=== PATIENT | female | born 1955 | race Caucasian/White ===

== ENCOUNTER 2025-07-28 00:32 | Day surgery (SDC) | payer MEDICARE, SELFPAY ==
--- NOTE | 2025-07-13 15:28 | PC.NURSE ---
Report to the Outpatient Waiting Room, entrance under the green pavilion located off [facility], at time __0915am on date __07/28/25 . Planned Procedure Time: 11:15am .? Time changes happen often and if your time is changed the preop area will call you the afternoon before. - You and your visitor will be asked to self-screen and do not enter if you have any COVID symptoms. Please call surgeon if you need to reschedule. - A mask is optional within the hospital at this time. Patients may have clear liquids (water, carbonated beverages, clear teas, apple juice) until 3 hours prior to surgery with a maximum of 20 ounces. - No food from midnight until time of surgery and no smoking, or chewing tobacco (or any form of nicotine). No chewing gum, candy or mints. (0815am) Take only the following medications with a SIP of water on the morning of surgery: ___NONE DO NOT STOP ANY OF YOUR OTHER PRESCRIPTION MEDICATIONS PRIOR TO SURGERY EXCEPT THE FOLLOWING Hold all vitamins and supplements for 3 days per anesthesiologist. Medications to discontinue per physician Advil/Aleve/Aspirin/Motrin for [address] Gill Date to take last dose___07/20/25__ Please no make-up, nail azerbaijani, hairspray, perfume, deodorant, or body powder the day of surgery.? No jewelry (including any body piercings) or valuables the day of surgery, leave them at home.? Please take a shower or bath the night before, or the morning of, surgery with an antibacterial soap.? Wear comfortable, loose fitting clothing.? - Jewelry must be removed prior to entering the operating room.? Rings and piercings that are not removed may be cut off. - The hospital will not accept responsibility for valuables.? - Please leave all valuables, including medications, at home the day of surgery. If you are going home after surgery, a licensed class b truck driver must drive you home.? - NO public transportation without another adult if you receive anesthesia. - We recommend that an adult stay with you for 24 hours following discharge. - We also recommend that you do not drive, make important decision, drink alcoholic beverages, or take any drugs that were not prescribed by your health care provider for at least 24 hours after your discharge time. Follow any additional instructions given to you from your surgeon. Telephone instructions given to ___Patient and asked if any additional questions and then verbalized understanding. Patient advised to call surgeon office or pre surgery nurse liaison [phone] if any additional questions.
[2025-07-13 15:36] VITALS: BMI 32.6
--- NOTE | 2025-07-22 13:31 | PM.IMHP ---
H&P: HPI History of Present Illness Date/Time: 07/22/25 13:31 Chief Complaint: UUI Narrative: successful trial of SNS Review of Systems Review of Systems: All systems reviewed & are unremarkable except as noted in HPI and below PMFSH Social History Social History Smoking status: Never smoker Second hand tobacco smoke exposure: No Alcohol intake: never Substance use: never Living arrangements: with family Additional living arrangements comments: Spiritual care concerns: No Meds Home Medications and Allergies Home Medications ?Medication ?Instructions ?Recorded ?Confirmed ?Type Lactobacillus acidophilus 10 100 mmu cells PO DAILY 07/13/25 07/13/25 History billion cell capsule ([employer]) benazepril 10 mg tablet 10 mg PO DAILY 07/13/25 07/13/25 History hydrochlorothiazide 12.5 mg tablet 12.5 mg PO DAILY 07/13/25 07/13/25 History multivitamin-ferrous 1 tablet PO DAILY 07/13/25 07/13/25 History fumarate-folic acid 18 mg-400 mcg tablet ([facility]) Allergies Allergy/AdvReac Type Severity Reaction Status Date / Time codeine AdvReac Intermediate nausea Verified 07/13/25 15:14 vomiting Sulfa (Sulfonamide AdvReac Intermediate Nausea and Verified 07/13/25 15:14 Antibiotics) Vomiting Exam Narrative: NAD A+Ox3 Assessment and Plan Assessment and plan (1) Urge incontinence of urine: Code(s): N39.41 - Urge incontinence Status: Acute Assessment and Plan: INterStim implant
[2025-07-28] VITALS (8 sets, daily range): BP systolic 149–196; BP diastolic 69–102; PULSE 53–67; RESP 12–16; TEMP 36.2; O2SAT 95–100
--- NOTE | ~2025-07-28 | XR_ITS ---
XR fluoroscopy no charge Indication: Neuro stimulator placement TECHNIQUE: Fluoroscopy used during neurostimulator placement performed by [Jose Gill MD] on 07/28/2025. 50 seconds with 2 fluoroscopic images captured. FINDINGS: Correlate with procedure note. IMPRESSION: Fluoroscopy used during neurostimulator lead placement in the pelvis.. Reviewed, dictated and finalized at location O. IMPRESSION: Fluoroscopy used during neurostimulator lead placement in the pelvi s..
--- OUTSIDE RECORDS SUMMARY | 2025-07-28 00:36 | XMS_ITS | Encounter Summary ---
Author Organization [facility] Address [address] [place] [address] Phone Care Team Providers Care Hammerer Helper Name Role Phone Yevgeniy Mckoy MD Primary Care Provider Encounter Details Date Type Department Care Team (Late st Contact Info) Description 11/21/2017 Orders Only [facility] ProviderLiliana MD [address] [place] [id number] Social History Tobacco Use Types Packs/Day Years Used Date Smoking Tobacco: Never Smokeless Tobacco: Never Alcohol Use Standard Drinks/Week Comments No 0 (1 standard drink = 0.6 oz pur e alcohol) Comments Unknown Sex and Gender Information Value Date Recorded Sex Assigned at Not on file Legal Sex Female 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 Historical Provider LAB BLOOD ORDERABLES Jessica l Result documented in this encounter Visit Diagnoses Not on filedocumented in this encounter Additional Health Concerns Infection Onset Date Last Indicated Resolved Time COVID: Suspected 07/02/2021 07/02/2021 07/02/2021 11:02 AM CDT documented as of this encounter Care Teams Hammerer Helper Relationship Specialty Start Date End Date Yevgeniy Mckoy MD PCP - General 02/20/17 documented as of this encounter
--- OUTSIDE RECORDS SUMMARY | 2025-07-28 00:36 | XMS_ITS | Encounter Summary ---
Author Organization [facility] Address [address] [place] [address] Phone Care Team Providers Care Bologna Lacer Name Role Phone Yevgeniy Mckoy MD Primary Care Provider Encounter Details Date Type Department Care Team (Late st Contact Info) Description 12/08/2017 Orders Only [facility] ProviderLiliana MD [address] [place] [id number] Social History Tobacco Use Types Packs/Day Years Used Date Smoking Tobacco: Never Smokeless Tobacco: Never Alcohol Use Standard Drinks/Week Comments No 0 (1 standard drink = 0.6 oz pur e alcohol) Comments Unknown Sex and Gender Information Value Date Recorded Sex Assigned at Not on file 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 Historical Provider LAB BLOOD ORDERABLES Jessica l Result documented in this encounter Visit Diagnoses Not on filedocumented in this encounter Additional Health Concerns Infection Onset Date Last Indicated Resolved Time COVID: Suspected 07/02/2021 07/02/2021 07/02/2021 11:02 AM CDT documented as of this encounter Care Teams Bologna Lacer Relationship Specialty Start Date End Date Yevgeniy Mckoy MD PCP - General 02/20/17 documented as of this encounter
--- OUTSIDE RECORDS SUMMARY | 2025-07-28 00:36 | XMS_ITS | Clinical Summary ---
Author Organization [facility] Address [address] [place] [id number] Care Team Providers Care Distribution Estimator Name Role Phone Yevgeniy Mckoy MD Primary Care Provider Allergies Active Allergy Reactions Criticality Noted Date Comments Codeine Nausea only,Vomiting Reaction: Nausea, Vomiting, , Sulfa (Sulfonamide Antibiotics) Nausea only,Vomiting Reaction: Nausea, Vomiting, , Medications pantoprazole DR (PROTONIX) 40 mg EC tablet Take 1 tablet (40 mg total) by mouth daily For heartburn 30 tablet 11 2 Active benazepriL (LOTENSIN) 10 mg tablet TAKE 1 TABLET (10 MG TOTAL) BY MOUTH DAILY 90 tablet 3 4 08/09/20 25 Active hydroCHLOROthia zide 12.5 mg tablet TAKE 1 TABLET (12.5 MG TOTAL) BY MOUTH DAILY 90 tablet 3 4 08/09/20 25 Active oxyBUTYnin (DITROPAN) 5 mg tablet TAKE 1 TABLET (5 MG TOTAL) BY MOUTH TWO (2) (TWO) TIMES a DAY 180 tablet 3 4 Active Active Problems Problem Noted Date Diagnosed Date Encounter for screening colonoscopy 05/14/2023 Gastroesophageal reflux disease without esophagi tis 08/07/2022 Medicare annual wellness visit, subsequent 08/01 Hx of cancer of endometrium 07/22/2019 Annual physical exam 07/17/2017 Benign hypertension 04/08/2014 Overview (02/26/2017): BENIGN HYPERTENSION Assessment & Plan (05/13/2021 12:40 PM CDT): Recommend DASH diet, heart-healthy lifestyle, exercise. Discussed the risks of hypertension. Assessment & Plan (11/21/2017 9:59 AM SCALER PACKER): bp high and needs to restart the ful Pill Of bp med and recheck weeks down the line to prove good again and stays down.Hypertension, Medical treament revolves around weight control, salt management, and meds when necessary. long as weight loss is necessary and you are able to drop weight we can cont to monitor the blood pressure and not add meds. Once the weight is not changing then it becomes nesessary to add meds to be able to reach the goal bp. Assessment & Plan (10/31/2017 9:59 AM SCALER PACKER): The bp on high Side and suggfest checking away fro here to confirm well controlled. Takes medsHypertension, Medical treament revolves around weight control, salt management, and meds when necessary. long as weight loss is necessary and you are able to drop weight we can cont to monitor the blood pressure and not add meds. Once the weight is not changing then it becomes nesessary to add meds to be able to reach the goal bp. OAB (overactive bladder) 11/28/2011 Overview (02/26/2017): Overactive bladder Adiposity 05/16/2011 Overview (02/26/2017): Obesity Resolved Problems Problem Noted Date Diagnosed Date Resolved Date Acute cystitis with hematuria 11/21/2017 07/22/2019 Assessment & Plan (11/21/2017 10:07 AM SCALER PACKER): Blood with uti c.o. Start meds and await culture report. repet urine off antibiotic to prove the blood gone as if not then added workup as cancer Is part of the differential. But if blood gone Then should not be a concern usually. Given pyridium for urgency. Push fluids to keep urine dilute for several days as if blod cont and not diluted can form big enough clots to make thenm stick and not come out and get you plugged up and not be able to pee Cough 11/21/2017 07/20/2018 Assessment & Plan (11/21/2017 10:01 AM SCALER PACKER): Cough better but some hanging on. Completed meds and with some this is hanging on. As long as appears to gtrfadually get better then would not do anything more. If flairs.worsens. Etc. Then worth re looking at. Bronchitis 10/31/2017 07/20/2018 Assessment & Plan (10/31/2017 9:57 AM SCALER PACKER): Hs=x of recurrent bronchitis without wheeze . The lack of benefit from a z pack suggests that this might be underlying reactive lung disease setoff by a uri. Would use a short steroid pulse and coverage with oral antibiotc with amoxil. Loose stools 10/31/2017 07/22/2019 Overview (10/31/2017): Not helped with paxil . Will suggest adding a probiotic daily. Give it a month. A small dose of fiber in the form fo a t of benefiber/citrocel of metamucil with the probiotic Weight gain 07/17/2017 07/20/2018 Hypertension 05/12/2014 07/20/2018 Malignant neoplasm of uterus 04/18/2011 07/22/2019 Encounters Date Type Department Care Team Description 07/20/2025 11:10 AM CDT Lab [address] [id number] from Last 3 Months Immunizations Immunization Administration Dates Next Due Influenza, Quadrivalent, Hig h Dose, Preservative Free, Intrr 10/03/2023,09/25/2022 Influenza, Trivalent, High D ose, Split, Preservative Free, Intramuscular 10/15/2020 Influenza, Unspecified 08/11/2024(Deferr ed: Patient Refused),07/24/2023(Deferred: Patient Refused),08/01/2021(Deferred: Patient Refused),07/26/2020(Deferred: Patient Refused),08/23/2019(Deferred: Patient Refused),07/22/2019(Deferred: Patient Refused) Moderna SARS-CoV-2 Monovalen t Vaccination (12+ YRS) 04/17/2021,03/20/2021 Pneumococcal Conjugate PCV 13 07/20/2018 Pneumococcal Polysaccharide PPV23 08/01/2021 Td, adsorbed 12/22/2002 Surgical History Surgery Date Site/Laterality Comments TOTAL ABDOMINAL HYSTERECTOMY W/ BILATERAL SALPINGOOPHORECTOMY 11/23/2010 - 11/22/2011 Hysterectomy, total abdominal, BSO CATARACT EXTRACTION left COLONOSCOPY 07/24/2011 - 08/22/2011 COLONOSCOPY 06/25/2023 Medical History Medical History Date Comments Malignant neoplasm of uterus (HCC) 2010 Cancer, uterine Family History Medical History Relation Name Comments Dementia Father Diabetes Mother Diabetes mellit us; Breast cancer Neg Hx Relation Name Status Comments Father Mother Social History Tobacco Use Types Packs/Day Years Used Date Smoking Tobacco: Never Smokeless Tobacco: Never Tobacco Cessation:Counseling Given: Not Answered Alcohol Use Standard Drinks/Week Comments No 0 (1 standard drink = 0.6 oz pur e alcohol) AUDIT-C Answer Date Recorded Q1: How often do you have a drink containing alc ohol? Never 06/24/2023 Average Number of Drinks Not on file 023 Q3: How often do you have si x or more drinks on one occasion? Never 06/24/2023 PHQ-2 Answer Date Recorded PHQ-2 Total Score (If total score is 3 or more points, staff should administer the PHQ-9) 0 08/11/2024 Personal Safety Answer Date Recorded Have you ever been in or are you currently in a harmful physical or emotional relationship or is someone making you feel afraid or unsafe? Denies 06/25/2023 Comments No Sex and Gender Information Value Date Recorded Sex Assigned at Not on file Legal Sex Female 11:53 PM SCALER PACKER Gender Identity Not on file Sexual Orientation Not on file Obstetrics History Para Term AB IAB SAB Ectopic Multiple Livin g Live Births 2 2 2 Date Outcome GA Total Labor Labor/2nd/3rd Weight Sex Type Anes PTL Agustina A1 A5 Name Clin Term Term Last Filed Vital Signs Vital Sign Reading Time Taken Comments Blood Pressure 110/76 08/11/2024 1:20 PM CDT Pulse 62 08/11/2024 1:20 PM CDT Temperature 36.6 C (97.9 F) 08/11/2024 1:20 PM CDT Respiratory Rate 16 08/11/2024 1:20 PM CDT Oxygen Saturation 99% 08/11/2024 1:20 PM CDT Inhaled Oxygen Concentration - - Weight 82.1 kg (181 lb) 08/11/2024 1:20 PM CDT Height 157.5 cm (5' 2) 10/14/2024 1:44 PM SCALER PACKER Body Mass Index 33.11 08/11/2024 1:20 PM CDT Plan of Treatment Health Maintenance Due Date Last Done Comments Osteoporosis Screening-Bone Density Scan 1955 Hepatitis B Screening 1971 DTaP/Tdap/Td Vaccine (1 - Tdap) 12/23/2002 3 Zoster Vaccine (1 of 2) 2003 Covid-19 Vaccine (3 - 2023-2 5 season) 2024 04/17/2021, 03/20/2021 Breast Cancer Screening-Mammogram 03/10/2025 03/10/2024, 12/16/2022, 12/02/2021, Additional history exists Influenza Vaccine (#1) 2025 , 09/25/2022, 10/15/2020 Depression Screening 08/11/2025 08/11/2024, 08/10/2023, 08/07/2022, Additional history exists Fall Risk Assessment 08/11/2025 08/11/2024, 08/10/2023, 06/25/2023, Additional history exists Well Visit 65+ 08/11/2025 08/11/2024, 07/24, 08/07/2022, Additional history exists Colon Cancer Screening-Colonoscopy 06/25/2033 06/25/2023, 08/15/2011, 08/15/2011, Additional history exists Hepatitis C Screening Completed 12/08/2017 Pneumococcal vaccine 65+ Completed 08/01/2021, 06/24 Colon Cancer Screening-CT Colonography Discontinued 06/25/2023, 08/15/2011, 08/15/2011, Additional history exists Colon Cancer Screening-DNA Stool Discontinued 06/25/2023, 08/15/2011, 08/15/2011, Additional history exists Colon Cancer Screening-FIT Discontinued 06/25, 08/15/2011, 08/15/2011, Additional history exists Colon Cancer Screening-Sigmoidoscopy Discontinued 06/25/2023, 08/15/2011, 08/15/2011, Additional history exists Procedures Procedure Name Priority Date/Time Associated Diagnosis Comments EGFR Routine 07/20/2025 11:15 AM CDT BASIC METABOLIC PANEL Routine 07/20/2025 11:15 AM CDT SCREENING MAMMOGRAM BILATERAL W CASEY Schedule Routine, Read Routine (OP Routine) 03/10/2024 1:55 PM CDT Screening mammogram, encounter for COLONOSCOPY 06/25/2023 8:16 AM CDT HEPATITIS C AB REFLEX RNA QUANT PCR Routine 12/08/2017 1:16 PM SCALER PACKER from Last 3 Months or Most Recently Relevant to Health Maintenance Results * (ABNORMAL) eGFR (07/20/2025 11:15 AM CDT) eGFR 55(L) >=60 mL/min/1. 73 m2 Comment: Interpretive Data Reference Interval Normal >/= 90 mL/min/1.73m2 Mildly decreased* 60 - 89 mL/min/1.73m2 Mildly to moderately decreased 45 - 59 mL/min/1.73m2 Moderately to severely decreased 30 - 44 mL/min/1.73m2 Severely decreased 15 - 29 mL/min/1.73m2 Kidney Failure < 15 mL/min/1.73m2 *Relative to young adult level Estimated glomerular filtration rate is determined by the 2020 CKD-EPI equation recommended by the National Kidney Foundation (A Unifying Approach to GFR Estimation: Recommendations of the NKF-ASK Task Force on Reassessing the Inclusion of Race in Diagnosing Kidney Disease, JASN 2020). The CKD-EPI equation should not be used for patients with unstable renal function and has not been validated in children and those over 70. Current interpretive data was last reviewed 2021. Blood 07/20/2025 11:1 5 AM CDT 07/20/2025 11:48 AM CDT us Alex Mayfield MD LAB BLOOD ORDERABLES Final Re sult Performing Organization Address City/[facility]/ZIP Co de Phone Number MARNIE GOLD (GI) [facility] Department [place] [address] * Basic metabolic panel (07/20/2025 11:15 AM CDT) Sodium 137 135 - 145 mmol/L [facility] (GI) Potassium, pl 4.2 3.3 - 4.9 mmol/L [facility] (GI) Chloride 100 97 - 110 mmol/L [facility] (GI) CO2 27 22 - 32 mmol/L [facility] (GI) Anion gap 10 2 - 15 mmol/L [facility] ([facility]) BUN 22 6 - 25 mg/dL [facility] (GI) Creatinine 1.08 0.60 - 1.10 mg/dL [facility] (GI) Glucose 113 70 - 199 mg/dL [facility] (GI) Comment: Interpretive Data Fasting glucose >/= 126 mg/dl is diagnostic for diabetes. Fasting is defined as no caloric intake for at least 8 hours. Fasting glucose between 100 mg/dl to 125 mg/dl is diagnostic of prediabetes. In a patient with classic symptoms of hyperglycemia or hyperglycemic crisis, a random glucose >/= 200 mg/dl is diagnostic for diabetes. In the absence of unequivocal hyperglycemia, results should be confirmed by repeat testing. The classification and Diagnosis of Diabetes Diabetes Care 202; 46: S19-S40. Current interpretive data was last revised 2022. Calcium 10.0 8.5 - 10.3 mg/dL [facility] (GI) Blood 07/20/2025 11:1 5 AM CDT 07/20/2025 11:48 AM CDT Alex Mayfield MD LAB BLOOD ORDERABLES Final Re sult Performing Organization Address City/[facility]/ZIP Co de Phone Number MARNIE GOLD (GI) [facility] Department [place] [address] * (ABNORMAL) Screening Mammogram Bilateral W Casey (03/10/2024 1:55 PM CDT) Anatomical Region Laterality Modality Breast Bilateral Mammography 03/10/2024 2:13 PM CDT Impressions 03/10/2024 2:13 PM CDT MLO asymmetry in the right breast. Recommend right diagnostic mammogram and possibly sonogram. BI-RADS: 0 - Additional imaging evaluation is necessary. Electronically signed by: Alaina Cole M.D. Narrative 03/10/2024 2:13 PM CDT EXAMINATION: SCREENING MAMMOGRAM BILATERAL W CASEY ORDERING HEALTHCARE PROVIDER: SELF SCREENING MAMMOGRAM HISTORY: Routine screening mammography. COMPARISON: 12/16/2022, 12/02/2021, 10/08/2020 TECHNIQUE: CC and MLO views of the bilateral breasts were obtained with digital technique using breast tomosynthesis with C view. Computer aided detection was utilized. FINDINGS: DENSITY: There are scattered fibroglandular elements in the bilateral breasts. BREASTS: Asymmetry in the central mid right breast on the MLO view. No suspicious mammographic finding in the left breast us Self Screening Mammogram IMG MAMMO PROCEDURES Fi nal Result * COLONOSCOPY (06/25/2023 8:16 AM CDT) Anatomical Region Laterality Modality Other Narrative Procedure Note Markel Morales MD - 06/25/2023 8:16 AM CDT [facility] Patient Name: Lena Little Procedure Date: 06/25/2023 8:16 AM Date of : 1955 Admit Type: Outpatient Age: 67 Gender: Female Attending MD: Markel Morales M.D. Room: [facility] ENDOSCOPY ROOM 1 Note Status: Finalized Patient Profile: Refer to note in patient chart for documentation of history and physical. Procedure: Colonoscopy Indications: Screening for colorectal malignant neoplasm, Last colonoscopy: July 2011 Referring MD: Yevgeniy Mckoy M.D. Providers: Markel Morales M.D. Impression: - Hemorrhoids found on perianal exam. - Diverticulosis in the sigmoid colon, in the descending colon and in the transverse colon. - Diffuse moderate inflammation was found in the descending colon secondary to ischemic colitis. - The examination was otherwise normal. - No specimens collected. Recommendation: - Discharge patient to home. - Resume previous diet. - Continue present medications. - Repeat colonoscopy in 10 years for screening purposes. - Return to primary care physician as previously scheduled. Medicines: Propofol per Anesthesia Complications: No immediate complications. Estimated Blood Loss: Estimated blood loss: none. Procedure: Pre-Anesthesia Assessment: - This assessment was completed [Time ofAssessment] prior to the administration of sedation. The benefits, risks and alternatives of theprocedure and sedation were discussed and informed consentwas obtained. All questions were answered. Please referto the signed informed consent document in the medical record. The bowel preparation used was Miralax via single dose instruction. The bowel preparation used was bisacodyl tablets via single dose instruction.The scope was passed under direct vision. TheColonoscope [id number] was introduced through the anus and advanced to the the cecum, identified by appendiceal orifice and ileocecal valve. The colonoscopy was performed without difficulty. The patient tolerated the procedure well. The qualityof the bowel preparation was good. The ileocecalvalve, appendiceal orifice, and rectum werephotographed. Findings: Hemorrhoids were found on perianal exam. Multiple small and large-mouthed diverticula were found in thesigmoid colon, descending colon and transverse colon. Diffuse moderate inflammation characterized by congestion (edema), erosions, erythema, friability and granularity was found in the descending colon. The exam was otherwise without abnormality. Electronically signed by Markel Morales M.D. Markel Morales M.D. 06/25/2023 9:55:50 AM Number of Addenda: 0 Note Initiated On: 06/25/2023 8:16 AM Procedure Code(s): --- Professional --- G0121, Colorectal cancer screening; colonoscopy on individual not meeting criteria for high risk --- Technical --- G0121, Colorectal cancer screening; colonoscopy on individual not meeting criteria for high risk Diagnosis Code(s): --- Professional --- K57.30, Diverticulosis of large intestine without perforation orabscess without bleeding K55.9, Vascular disorder of intestine, unspecified K64.9, Unspecified hemorrhoids Z12.11, Encounter for screening for malignant neoplasm of colon --- Technical --- K57.30, Diverticulosis of large intestine without perforation orabscess without bleeding K55.9, Vascular disorder of intestine, unspecified K64.9, Unspecified hemorrhoids Z12.11, Encounter for screening for malignant neoplasm of colon CPT copyright 2020 [employer]. All rights reserved. The codes documented in this report are preliminary and upon certified procedural coder reviewmay be revised to meet current compliance requirements. Recognized by the [employer] for promoting quality in endoscopy us Markel Morales MD ENDOSCOPY PROCEDURES Final Re sult * Hepatitis C Antibody Reflex Hepatitis C RNA Quantitative PCR (12/08/2017 1:16 PM SCALER PACKER) Hep C Ab Negative Negative MARNIE Blood specimen (specimen) 12/08/2017 1:16 PM SCALER PACKER 12/08/2017 1:16 PM SCALER PACKER Narrative MARNIE - 12/08/2017 2:19 PM SCALER PACKER Yevgeniy Mckoy MD LAB MICROBIOLOGY - GENE RAL ORDERABLES Final Result MARNIE LEONARD [id number] Department [place] [address] from Last 3 Months or Most Recently Relevant to Health Maintenance Insurance MEDICARE AET [address]IOR [address] [address] [place] [address] MEDICARE [facility] MEDICARE [employer] SENIOR SUPPLEMENT Advance Directives For more information, please contact: [phone] * Full Code (Latest Code Status on File) Date Activated Date Inactivated Comments 06/25/2023 8:18 AM 06/25/2023 2:40 PM * Full Code Date Activated Date Inactivated Comments 06/25/2023 8:18 AM 06/25/2023 8:18 AM Care Teams Distribution Estimator Relationship Specialty Start Date End Date Yevgeniy Mckoy MD PCP - General 02/20/17
--- NOTE | 2025-07-28 07:16 | WPDHPUPDATE1 ---
History and Physical Update Update Date/Time: 07/28/25 07:16 History and Physical has been reviewed, including an updated exam of the patient. There are NO changes in the patient's condition. Risks, benefits, and alternatives have been discussed and questions answered. Patient agrees to proceed with procedure.
[2025-07-28] MEDS: LACTATED RINGERS 1,000 ML 30 ML IV CONT (10:45)
--- NOTE | 2025-07-28 10:45 | WPDANESEPPF ---
Anes - Initial Pre Proc Eval Procedure: Operation Date: 07/28/25 11:15 Proposed Procedures p Neurostimulator Implant - Jose Gill MD Date/Time: 07/28/25 10:45 Surgeon: Jose Gill MD Pre Op Diagnosis: sensory urge incont Patient Data Age: 70 Gender: F Height: 1.57 m Weight: 84 kg Last Vital Signs Temp 36.2 C L 07/28/25 09:40 Pulse 58 L 07/28/25 09:40 Resp 16 07/28/25 09:40 BP 160/88 H 07/28/25 09:40 Pulse Ox 95 07/28/25 09:40 O2 Del Method Room Air 07/28/25 09:40 Allergies Allergy/AdvReac Type Severity Reaction Status Date / Time codeine AdvReac Intermediate nausea Verified 07/28/25 10:16 vomiting Sulfa (Sulfonamide AdvReac Intermediate Nausea and Verified 07/28/25 10:16 Antibiotics) Vomiting Home Medications ?Medication ?Instructions ?Recorded ?Confirmed ?Type Lactobacillus acidophilus 10 100 mmu cells PO DAILY 07/13/25 07/28/25 History billion cell capsule ([employer]Flora) benazepril 10 mg tablet 10 mg PO DAILY 07/13/25 07/28/25 History hydrochlorothiazide 12.5 mg tablet 12.5 mg PO DAILY 07/13/25 07/28/25 History multivitamin-ferrous 1 tablet PO DAILY 07/13/25 07/28/25 History fumarate-folic acid 18 mg-400 mcg tablet ([facility]) hydrocodone 5 mg-acetaminophen 325 1 tablet PO Q6H PRN pain #20 tabs 07/28/25 Rx mg tablet Patient hx anesthesia problems: none Family hx anesthesia problems: none Results Review: All pre-operative results and documents have been reviewed as part of the pre-operative evaluation. [facility] Past Medical History Medical History (Updated 07/27/25 @ 15:42 by Miguelito Gonzalez DO) Uterine cancer Hypertension Surgical History Surgical History (Updated 07/27/25 @ 15:42 by Miguelito Gonzalez DO) History of hysterectomy Social History Social History Smoking status: Never smoker Second hand tobacco smoke exposure: No Alcohol intake: never Substance use: never Living arrangements: with family Additional living arrangements comments: Spiritual care concerns: No Anes - Eval Final PreProcedure Day of Procedure 07/28/25 10:45 Patient weight: obese Heart: regular rate and rhythm Lungs: clear to auscultation Airway: Mallampati scale class II Neurological: alert and oriented Last oral intake: >/= 8 hours ASA classification: III Emergent: no Anesthetic plan: proceed Anesthesia type and monitoring: general GIVS and standard monitoring Results Review: All pre-operative results and documents have been reviewed as part of the pre-operative evaluation. Informed Consent: The patient's anesthetic plan and its attendant risks and benefits were discussed with the patient/family/POA. Questions were solicited and answers provided to the satisfaction of the patient/family/POA.
[2025-07-28] MEDS: ceFAZolin 2 GM in SODIUM CHLORIDE 0.9% IV 50 ML 100 ML IVPB (11:16)
[2025-07-28] MEDS: BUPIVACAINE/EPINEPHRINE 0.5% 50 ML VIAL 30 ML INFILTRATE (11:32)
--- NOTE | 2025-07-28 12:14 | W.PM.PROC2 ---
Procedure Note - Detailed Date of Procedure 07/28/25 Pre-op Diagnosis sensory urge incont Post-op Diagnosis Same Procedure Performed Implantation of sacral lead 57325 Placement of implantable pulse generator 09514 Complex neurostimulator programming impedance check 58622 Surgeon Jose Gill MD Anesthesia MAC and Local Indications This is a patient with refractory urge urinary incontinence. They have undergone a successful trial of sacral nerve stimulation. They present today for permanent implantation. They understand the risks of bleeding, infection, decreased efficacy, need for revision and battery changes. They agree to proceed Findings See dictated Description of Procedure They were correctly identified and informed consent was obtained. There brought to the operating room. There placed in the prone position. There given appropriate perioperative antibiotics. A time-out performed. I used fluoroscopy to tabitha out my sacral landmarks in the AP and the lateral orientation. I anesthetized the skin. I entered the S3 foramen. I monitored the needle with fluoroscopy. I got appropriate [place] and toe response at a low threshold. I made a skin sissy. I placed a stylet. I placed the lead introducer sheath. I then placed and deployed to my lead. All was done under fluoroscopy. I got appropriate responses again at a low threshold. I marked out the site of the pulse generator. I anesthetized the skin and made that incision. I created a subcutaneous pocket to house the pulse generator. I tunneled the lead towards this pocket. Appropriate connections were made between the lead and the battery. It was placed in the pocket. It was programmed and impedances were checked and found to be normal. I irrigated out all wounds. I ensured hemostasis. I closed the subcutaneous tissues with 2 Vicryl. I closed the skin with 4 0 Vicryl. Glue was applied. There then awakened and transferred to the PACU in stable condition. Implants Sacral neurostimulator Estimated Blood Loss 5 Drains No Packing No Pathology None sent Condition Stable Disposition PACU
[2025-07-28] MEDS: traMADol HCL (*CRX) 50 MG TABLET PO (13:16)
--- NOTE | 2025-07-28 13:29 | SUR.PHASEII ---
NEUROSTIMULATOR TECH TURNED IT ON; PATIENT AWARE.
--- NOTE | 2025-07-28 13:50 | SUR.PHASEII ---
HYDRALIZINE ORDERED FOR ELEVATED BLOOD PRESSURES 180s-190s/101; DR. SALTER CALLED WHO ORDERED HYDRALAZINE 5 MG TO BRING SBP <180; BLOOD PRESSURE THEN WAS 176/81 WITHOUT GIVING HYDRALAZINE SO IT WAS NOT GIVEN.
== END 2025-07-28 14:10 | disposition home or self-care (01) ==
PROVIDERS: PCP Internal Medicine; Visit Provider Urology
PROC: (CPT 64561; principal; 2025-07-28 11:15)
DX: N39.41 Urge incontinence (principal); E66.9 Obesity, unspecified; Z68.33 Body mass index [BMI] 33.0-33.9, adult
CPT/HCPCS: 64561; 64590; 99199; J0690; A9270; C1767; C1778; C1787; J0360; J2003; J2004; J2250; J2704; J3010; J7120